=== PATIENT | female | born 1940 | race Caucasian/White ===

== ENCOUNTER → 2021-07-02 09:22 | Outpatient (CLI) | payer MEDICARE, OTHER, SELFPAY ==
[2021-07-02 12:12] LABS: COVID19 -Nasal RAPID Negative (Negative)
== END ==
PROVIDERS: PCP Nurse Practitioner Family; Visit Provider Family Medicine Sleep Medicine
DX: Z20.822 Contact with and (suspected) exposure to COVID-19 (principal)
CPT/HCPCS: 87635; C9803

== ENCOUNTER 2021-07-04 06:22 | Day surgery (SDC) | payer MEDICARE, OTHER, SELFPAY ==
[2021-06-25 09:58] VITALS: BMI 25.0
[2021-07-04] VITALS (16 sets, daily range): BP systolic 107–157; BP diastolic 45–78; PULSE 78–100; RESP 10–19; TEMP 35.6–37; O2SAT 90–97; BMI 25.0
--- NOTE | 2021-07-04 | DI.RAD.S_ITS ---
PROCEDURE: XR LUMBAR SPINE 2-3V INDICATIONS: L4-5 L5-S1 TLIF TECHNIQUE: 3 views of the lumbar spine were acquired. COMPARISON: [facility], CT, CT LUMBAR SPINE WITHOUT CONTRAST, 05/31/2021, 14:29. FINDINGS: Intraoperative images demonstrating L4-S1 fixation. Hardware appears intact with good anatomic alignment. IMPRESSION: Intraoperative L4 through S1 fixation. Dictated by: Shanice Vargas M.D. on 07/04/2021 at 17:24 Approved by: Shanice Vargas M.D. on 07/04/2021 at 17:25
[2021-07-04] MEDS: LACTATED RINGERS 1,000 ML 42 ML IV ×2 (07:00→09:52)
[2021-07-04] MEDS: ACETAMINOPHEN 325 MG TABLET 975 MG PO (07:01)
--- NOTE | 2021-07-04 07:27 | SUR.OPER ---
Prone on spine table, head in foam head support, padded chest and pelvic supports, gel pad at knees, lower legs supported by pillows; nipples, genitalia and toes free of pressure, arms secured on foam padded arm boards at <90 degrees abduction. Tape over blanket at thigh secured to table.
--- NOTE | 2021-07-04 07:46 | PM.PREOP ---
Pre-operative Note COVID-19 COVID-19 status: Negative Result date/Date tested (Pos, Neg/Pending): 07/02/21 Criteria for continued procedure: Expected advancement of disease process, Possibility delay results in more complex future surgery or treatment, Increased loss of function, Continuing or worsening of significant or severe pain, Deterioration of the patient's condition or overall health and Delay expected to result in less-positive ultimate med/surg outcome Interval Note History & Physical reviewed/Exam performed by Physician: Yes Changes to H&P: No
[2021-07-04] MEDS: CEFAZOLIN 2 GM/20 ML SYRINGE IV (08:00)
[2021-07-04] MEDS: BUPIVACAINE LIPOSOME 266 MG/20 ML VIAL INJ (08:42)
[2021-07-04] MEDS: BUPIVACAINE 0.25% (PF) 30 ML, EPINEPHrine 0.3 MG INJ (08:42)
--- NOTE | 2021-07-04 10:44 | CM.DANOTE ---
Patient is a 80 yo female who was admitted today on 07/04/21 for TLIF. Pt has [employer] for insurance and her PCP is Sonia Lipscomb. EMR was reviewed. Per Ortho MD, pt scheduled for TLIF this morning and off the floor in the OR currently. PT/OT to be ordered after pt arrives back to the floor from surgery and more medically appropriate to participate. Pt lives in [place], [place] in an apartment and has no hx of admissions here at [facility]. Plan: SW to attempt bedside assessment later today after pt returns to the floor from Ortho surgery and if pt medically appropriate for discussion. BHAVANA Poon Discharge Planning/Care Management CM Discharge Assessment Start: 07/04/21 10:41 Freq: Status: Active Protocol: Document 07/04/21 10:41 BF (Rec: 07/04/21 10:44 BF [id number]) Discharge Planning Assessment Assigned Rug Designer BHAVANA Oswald DPOA/Assigned Designee Name Santiago Rivera Contact Information [phone] Advance Directives? Yes Advance Directives on File No History Provided By Patient,Medical Record Has Patient been admitted in last 30 No days? Prior Living Arrangements Apartment/Condo Household Members none Independent with ADL's Yes Is patient alert and oriented? Yes Caregiver for Another No Community Services used prior to Physical Therapy admission: Barriers to Discharge No Comment Pending PT/OT eval and recommendations Discharge Plan Home with Home Health Additional Comment Pending PT/OT eval after surgery this morning Review Status In Process Please Provide Date Initial DC 07/04/21 Assessment Was Performed Next Review Type Continued Stay Review Pre-Anesthesia Assessment Start: 06/25/21 09:58 Freq: Status: Active Protocol: Document 06/25/21 09:58 CAB (Rec: 06/25/21 10:42 CAB [id number]) Pre-Anesthesia Assessment Patient Information Reviewed Via Phone Assessment Assessment Completed With Patient Comment Outside EKG here, labs done not here, COVID 06/29 Primary Care Provider Sonia Lipscomb Medical Clearance Received Yes Seen Specialist in Last 12 Months Yes Specialist Seen Frame Bender,Orthopedist Comment PCP clearance form scanned Primary Language Armenian Hand Screen Printer Required No Height 165.1 cm Weight 68.039 kg Body Mass Index (BMI) 25.0 Hearing Ability Use of Hearing Aid Visual Assist Glasses Dentition Type Teeth, Natural Present Barriers to Learning None Hx Anesthesia Reactions No Hx Family Anesthesia Reaction No Hx Malignant Hyperthermia No Hx Blood Transfusions No Anesthesia Review Requested No alcohol intake current alcohol intake frequency 0-2 drinks per day Smoking Status Former smoker how long ago did patient quit smoking Quit age 37 Substance Use Type other Comment CBD oil capsule prn Pain Present Pain Reported Musculoskeletal Symptoms Abnormal Gait,Back Pain, Difficulty Walking,Radiating Pain into Limb History of Falling (Recent or History of No ) Patient is completely paralyzed or No completely immobile Mental Status Oriented to own ability Is patient on oxygen? No Does patient have GARY/SOB No Hx Sleep Apnea No Currently Taking a Beta Mario No Hx Chest Pain No Hx SOB No Hx Syncope or Dizziness No Anti-Coagulant Therapy No Has a Service Desk Lead No Cardiac Testing No Hx Pacemaker/ICD No Pacemaker Rep Required? 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 Received a COVID vaccine? Yes Received all doses? Yes Marital Status / Lives With none Prior Living Arrangements Apartment/Condo Number of Floors (Floors) One Floor Support System Family,Friend(s) Does the Patient Have Assistance After Yes: Niece and daughter will Surgery stay w/pt to assist at DC Patient Discharge Plan Description Return Home Comment Pt advised 2 day length of stay per surgeon Feels Safe in Current Environment Yes Been Physically Hurt or Threatened By a No Person in Current Environment Do you have thoughts of harming yourself None or others? Are you currently considering suicide? No Do you have a plan to hurt yourself or No Plan others? Do You Have Any Spiritual Beliefs That No May Affect Your HC Choices? Do You Have Any Cultural Practices That No May Affect Your HC Choices? Comment Atheist Who Can We Speak to About Patient's Care Family, friends Identifying Code for Release of Patient Declines to issue Information Health Care Proxy/Next of Kin Diana (daughter) Health Care Proxy Emergency Contact Name Jackelyn (niece) Emergency Contact Advance Directives? Yes Advance Directives on File No Requested Patient Bring Advanced Yes Directives DOS Power of Binder Layer Yes Power of Binder Layer Name Diana (daughter) Power of Binder Layer PAC Instructions Durable medical equipment, Medications to take/avoid, Nasal antibiotic,No ETOH/ petroleum product on skin DOS, NPO,Post-op transportation,Pre -surgical wash,Sturdy shoes/ comfortable clothes,Do not bring valuables and remove jewelry
--- NOTE | 2021-07-04 12:07 | P.OP_ITS ---
Operative Date/Time/Diagnoses Date of procedure: 07/04/21 Time of procedure: 07:45 Pre-op diagnosis: 1. L4-5 spondylolisthesis 2. L4-5, L5-S1 spinal stenosis with neurogenic claudication Post-op diagnosis: same Procedure & Clinicians Procedure: 1. L4-5, L5-S1 Postero-lateral and posterior interbody fusion 2. L4-5, L5-S1 interbody cage placement. 3. L4-5, L5-S1 decompressive laminectomy with bilateral facetecomies 4. L4-5, L5-S1 Posterior segmental instrumentation 5. [place] of bone marrow from iliac crest 6. Utilization of microsurgical technique and operating microscope 7. Robotic assisted navigation surgery Same procedure as scheduled: Yes Indications: Patient has been having chronic back pain and worsening lumbar radiculopathy that is progressive in the last month. Patient failed multiple conservative management with worsening pain weakness and numbness in her lower extremity. Patient has been having difficulty performing activity of daily living. After discussing risks benefits of treatment options, patient elected proceed with surgery on urgent basis. Surgeon: Louie Bradshaw Fire Support Man: Trisha Saini Click Yes if Unassisted: No Anesthesia Type: General Operative Notes Closure Type: primary Specimen(s): none sent Prosthetic devices, grafts, tissues, transplants, or devices: Globus CREO MIS screws, Rise cages Applied: catheter Estimated Blood Loss (mL): 100 Procedure in detail: Patient was seen in the preoperative area. Risks and benefits of the surgery was discussed with the patient. Informed consent was obtained from the patient and placed in the chart. Surgical site was marked. Patient was taken to the operative room. General anesthesia was administered. Prophylactic antibiotic was given to the patient less than 30 min before the incision was made. Patient was placed into a prone position on the Johnnie table. Patient's back was then prepped and draped in the sterile fashion. Time-out was performed at this time. After patient was prepped and draped, patient's PSIS was palpated and marked suzie aterally. Small 1 cm incision was made over the PSIS for placement of the reference probes. Two trocar was placed into the PSIS 1 on each side. The reference probe was attached to the trocar of the reference apparatus. At this time the C-arm imaging was used to confirm AP and lateral of L4-L5, L5- S1 vertebrae and merged the C-arm imaging using the Frankly robotic navigation system with the CT of the lumbar spine. After successful merging was completed and confirmed, skin marker was used to samuel out the skin incision using the Frankly robotic arm. Bilateral incision was made at this time. Pre templated trajectory was used and guided using the Frankly robotic navigation system for bilateral L4, L5, S1 pedicle screw placement. This was done by using the robotic arm to guide the high-speed bur to make a cortical entry point. Next a drill was placed also using the robotic arm and guided using the navigation system drilling partially through bilateral L4, L5 and S1 pedicles. Next L4, L5, S1 pedicle screws it was pre templated and measured was placed onto the power regional flatbed truck driver and inserted into the pedicles bilaterally. After all 6 screws were placed C-arm imaging was taken of both AP and lateral to confirm the placement. Excellent placement of the screws were confirmed and a matched precisely with the pre planned screw placement using the navigation system. MARs retractor was inserted using FuelMy[employer] guidence. Globus MARS retractors was placed inside the incision and docked onto the L4 and L5 lamina. Using microsurgical technique and operating microscope, a L4, L5 laminectomy and L4-5, L5-S1 facetectomy was performed using a Kerrison rongeur. Patient was found have severe lateral recess and neural foramen stenosis which was fully decompressed after the laminectomy facetectomy. More than 75% of the facets were removed during the process of decompression rendering L4-5, L5-S1 level grossly unstable and required a fusion procedure at the same time. The disc space at L4-5, L5-S1 was identified, and a total diskectomy was performed at L4- 5, L5-S1 level. The endplates were decorticated using a rasp and shaver. The total diskectomy and decortication was performed at L4-5, L5-S1 level in order to to accomplish a L4-5, L5-S1 fusion. The local bone from the laminectomy and facetectomy was saved for local bone grafting. After the total diskectomy and decortication was completed, Trifecta bone graft material was combined with local bone that was harvested earlier. At this time, a separate skin is incision was made over the iliac crest. A Jamshidi needle was inserted into the iliac crest through a separate skin incision. 5 cc of bone marrow aspiration was obtained through the separate skin incision using a Jamshidi needle from the iliac crest. The bone marrow aspiration was combined with local bone and the Trifecta bone grafting material. The bone grafting material was placed into the L4-5, L5-S1 interbody space along with a expandable cage. The cage was expanded to its maximum height using the torque limiting screwdriver. The disc preparation as well as the cage insertion were also performed under navigation guidance. After the cage was placed, AP and lateral C-arm imaging was taken to confirm placement of the cage and excellent position was confirmed. Globus MARS retractor was inserted and docked onto the L4-5, L5-S1 posterolateral gutter on the right side. Using the power drill, posterior- lateral decortication was performed at L4-5, L5-S1 level until bleeding cortical bone was identified. The remaining bone grafting material was placed into the L4-5, L5-S1 posterior lateral gutter he order to accomplish posterolateral fusion at the L4-5, L5-S1 level. At this time the tulips were attached to the L4, L5, S1 pedicle screw shanks. After measuring the length of the rods, they were inserted into the tulips of the pedicle screws and locked in place using locking caps and torque limiting screwdriver bilaterally. Total 6 caps and 2 titanium rods was used in order to complete the posterior instrumentation construct. After all the hardware was placed, and confirmed with AP and lateral C-arm imaging, the wound was then irrigated with sterile normal saline and packed with Ray-Nacho gauze for 3 min to accomplish hemostasis. After the gauze was removed the deep fascia was closed with #1 Vicryl suture. The subcutaneous layer was closed with 2-0 Vicryl. The skin was closed with skin negrito. Patient tolerated the procedure well. There were no complications. Neuro monitoring system was used to monitor patient's neurologic status throughout entire procedure. There was no disturbance of the neural monitoring signals throughout the case. Complications: none Post-operative Condition: stable Disposition: PACU Plan for aftercare: Admit to inpatient hospital
[2021-07-04] MEDS: HYDROMORPHONE 2 MG INJ IV ×2 (12:29→12:38)
[2021-07-04] MEDS: LORazepam 2 MG/ML INJ 0.25 MG IV (12:34)
[2021-07-04] MEDS: OXYCODONE IR 5 MG TABLET PO (13:02)
--- NOTE | 2021-07-04 13:43 | SUR.PHASEI ---
1205 received post spine surgery. Sleepy for 25 min and then c/o pain. Dilaudid 0.5 mg IV given X2 and small dose of ativan. Oxycodone 5 mg IR given. Sleeping afterwards and seems very comfortable. However when awakened c/o pain 7-01/16. Report given and taken to acute care
--- NOTE | 2021-07-04 13:54 | PT-IP ANOTE ---
checked with nurse and stated that pt just came up to the floor. pt is not ready for PT eval. checked with pt and agreed to do PT tomorrow. 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 also informed PT that her L hip has more pain prior to surgery. will f/u tomorrow.
[2021-07-04] MEDS: HYDROMORPHONE 0.5 MG INJ IV (14:28)
[2021-07-04] MEDS: SODIUM CHLORIDE 0.9% 1,000 ML 100 ML IV (14:28)
[2021-07-04] MEDS: hydrOXYzine pamoate 25 MG CAPSULE PO (16:33)
[2021-07-04] MEDS: CEFAZOLIN 1 GM VIAL IV (16:33)
--- NOTE | 2021-07-04 17:27 | OT.IP.EVAL ---
Current Diagnoses Spondylolisthesis, lumbar region (07/04/21) Spinal stenosis, lumbar region with neurogenic claudication (07/04/21) Surgery Performed Operation Date: 07/04/21 07:45 Actual Procedures p L4-5, L5-S1 TLIF with posterior instrumentation-Robot(Not Applicable) - Louie Bradshaw MD Past Medical History (Last Reviewed 07/04/21 @ 06:54 by Norma Schaefer, RN) Anxiety Asthma Concussion (2009) Easy bruisability GERD (gastroesophageal reflux disease) Glaucoma Hearing loss History of hysterectomy History of tonsillectomy HTN (hypertension) Hx of laminectomy (1999) Normal pressure hydrocephalus S/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 ENGINE 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 shunt (11/2015) SCC (squamous cell carcinoma) (2020) Sciatica Surgical History (Last Reviewed 07/04/21 @ 06:54 by Norma Schaefer, YAMILE) History of hysterectomy History of tonsillectomy Hx of laminectomy (1999) S/P ELECTRIC ENGINE MECHANIC shunt (11/2015) Occupational Therapy Inpatient Evaluation/Re-Eval M1 PT/OT-IP Prior Functional Status Start: 07/04/21 17:24 Freq: NEEDED Status: Active Protocol: Document 07/04/21 17:24 [facility] (Rec: 07/04/21 17:39 [facility] [id number]) Medical Review Prior Functional Status Medical History Reviewed Yes Communication Independent Mobility and Gait Per pt last December only could walk a block and now just standing for extended time causes her pain. Activities of Daily Living and IADL's Pt needing increased time to do ADL and IADl needs. Social History Household Members none Living Arrangements Apartment/Condo Number of Floors (Floors) One Floor Number of Stairs To Enter/Railing? 1 low riser and then platform and then 2 more low rising steps with left rail going up. Home Environment High Toilet,Tub/Shower Home Equipment Front Wheel Walker,Quad Cane, Manual Wheelchair,Shower Seat with Backrest,Hand Held Shower ,Clinical Laboratory Manager,Grab Bars In Shower Additional Social History Comment Pt's niece, Jackelyn to be staying with the pt to assist for her needs . M2 OT-IP Current Condition Start: 07/04/21 17:24 Freq: Status: Active Protocol: Document 07/04/21 17:24 [facility] (Rec: 07/04/21 17:39 [facility] [id number]) Occupational Therapy Current Condition Current Condition Evaluation Date 07/04/21 Treatment Diagnosis S/p L4-5, L5-S1 TLIF Diagnosis Onset Date 07/04/21 Post Operative Precautions Lumbar Precautions Log Roll,No Twisting,Limit Bending,Lifting Restriction of 10 lbs,Gait Belt above Incisional Area M3 OT- IP Subjective and Pain Start: 07/04/21 17:24 Freq: Status: Active Protocol: Document 07/04/21 17:24 [facility] (Rec: 07/04/21 17:39 [facility] [id number]) OT- Subjective Occupational Therapy Visit Type Type Initial Evaluation Visit Start Time 16:42 Visit Stop Time 17:27 Total Visit Minutes 45 Occupational Therapy Visit Comments Patient Comments Pt wanting to get up and pt's niece in the room. Patient/Caregiver Goals TO go home. OT Pain Assessment Pain When Pain Assessed At Rest Pain Present Pain Present Pain Reported Location Back Intensity 2 Scale Used Numeric (0 - 10) M4 OT- IP ADL's Start: 07/04/21 17:24 Freq: Status: Active Protocol: Document 07/04/21 17:24 [facility] (Rec: 07/04/21 17:39 [facility] [id number]) OT GAP-Dqcv-Jjrgsln Comments OT Self-Feeding Comments Not at meal time. OT ADL-Grooming Comments OT Grooming Comments Not performed. OT ADL-Oral Care Comments Oral Care Comments Able to initiate education best to spit into a cup or hinge at her hips to best follow her back precautions. OT ADL-Dressing Comments OT Dressing Comments Pt states that she prior able to comfortable crosses her legs to do LB dressing needs. to go over use of LB dressing equipment as needed tomorrow. OT ADL-Toileting General Evaluation Toileting Ability Total Assistance Areas Needing Assistance Empty Catheter or Colostomy Comments OT Toileting Comments Garvey still in place. Pt states usually wipe from the front. OT ADL-Bathing Comments OT Bathing Comments To do shower tomorrow/ caregiver training M5 OT- IP IADL's Start: 07/04/21 17:24 Freq: Status: Active Protocol: Document 07/04/21 17:24 [facility] (Rec: 07/04/21 17:39 [facility] [id number]) OT-Instrumental Activities of Daily Living Home Safety Awareness Awareness of Need for Assistance at Home Good Awareness Ability to Problem Solve Emergency Able to Problem Solve Situations Home Safety Comments Pt's niece, Jackelyn to be staying with pt to assist for all needs. M6 OT- IP Functional Cognition Start: 07/04/21 17:24 Freq: Status: Active Protocol: Document 07/04/21 17:24 [facility] (Rec: 07/04/21 17:39 [facility] [id number]) Cognitive Factors Limiting Selfcare Function Cognitive Ability Level of Alertness Alert,Drowsy Patient Orientation Name,Place,Situation Safety Awareness Decreased Ability to Apply Precautions,Underestimates Need for Assistance Cognitive Comments Cognitive Assessment Comments Cues for log rolling. Cues to keep the FWW close to her. Pt needing reminders to incorporate her back precautions. Pt wanting to twist/turn to see her back dressing as forgetting about her back precautions. OT- Vision and Hearing OT- Hearing Assessment OT- Hearing Assessment WFL M7 OT- IP Mobility and Balance Start: 07/04/21 17:24 Freq: Status: Active Protocol: Document 07/04/21 17:24 [facility] (Rec: 07/04/21 17:39 [facility] [id number]) OT- Bed Mobility Assessment Supine to Sit Supine to Sit Assist Contact Guard Assistance Sit to Supine Sit to Supine Assist Standby Assistance Scooting Scooting to Edge of Bed Standby Assistance OT-Transfer Assessment Sit to and From Stand Sit to and from Stand Standby Assistance Transfers Transfer Ability Standby Assistance,Contact Guard Assistance Technique Transfer Destination Bed Transfer Technique Stand Step Pivot Devices Transfer Assistive Devices Gait Belt,Front Wheeled Walker Comments Mobility Comments Pt needing reminder and step by step for log rolling and hand placement from supine to sit. VC for safety to push up from the bed to stand to the FWW. CGA to stand to FWW and able to walk in the room 4 laps with CGA/SBA. Pt cues to stop as to not to overdo it on the first day. OT- Balance Assessment Sitting Balance and Reactions Static Sitting Balance Ability Normal Standing Balance and Reactions Static Standing Balance Ability Good Dynamic Standing Balance Ability Fair M8 OT- IP Objective Assessments Start: 07/04/21 17:24 Freq: Status: Active Protocol: Document 07/04/21 17:24 [facility] (Rec: 07/04/21 17:39 [facility] [id number]) OT Gross Range of Motion Upper Extremity Range of Motion Assessment Within Functional Limits M9 OT- IP Assessment and Plan Start: 07/04/21 17:24 Freq: Status: Active Protocol: Document 07/04/21 17:24 [facility] (Rec: 07/04/21 17:39 [facility] [id number]) OT Summary Assessment and Plan Potential Rehabilitation Potential Excellent Analytic Complexity at Evaluation Low Summary OT Impairments Pain,Balance,Functional Cognition,Functional Mobility, Grooming,Dressing,Toileting, Bathing,Toilet Transfers, Shower Transfers Progress Towards Goals Progressing Toward Goals Assessment Summary Pt Low complexity and main barriers are steps, pain, and needing reminders to incorporate her back precautions. Pt has a very supportive niece to stay and assist with her care at home. Pt to go home when medically stable. Goals Grooming Goal Independent Dressing Goal Independent Toileting Goal Independent Bathing Goal Standby Assistance Toilet Transfer Goal Independent Shower Transfer Goal Standby Assistance Patient/Caregiver Education Goal Demonstrate Post-Op Precautions,Caregiver Independent Assisting Patient Days to Meet Goals 2 Frequency of Treatment Frequency Of Treatment Once a Day Treatment Plan OT Treatment Plan ADL Training,Functional Cognition Training,Functional Mobility,Patient/Family Education,Discharge Planning Other Treatment Recommendations and Next shower/caregiver training Treatment Focus Discharge Recommendations OT Discharge Recommendations Home with 30/12 Assist Available Transportation Needs at Discharge Private Vehicle
[2021-07-04] MEDS: LATANOPROST 0.005% OPHTH 2.5 ML 1 DROPS EYE-BOTH (20:28)
[2021-07-04] MEDS: GABAPENTIN 400 MG CAPSULE PO (20:28)
[2021-07-04] MEDS: DOCUSATE 100 MG CAPSULE PO (20:28)
[2021-07-04] MEDS: ROPINIROLE 1 MG TABLET 3 MG PO (20:29)
[2021-07-04] MEDS: lisinopriL 20 MG TABLET 40 MG PO (20:29)
[2021-07-04] MEDS: PANTOPRAZOLE DR 40 MG TABLET 80 MG PO (20:29)
[2021-07-04] MEDS: MONTELUKAST 10 MG TABLET PO (20:29)
[2021-07-04] MEDS: MELATONIN 3 MG TABLET 6 MG PO (20:29)
[2021-07-04] MEDS: NABUMETONE 500 MG TABLET 750 MG PO (20:29)
[2021-07-04] MEDS: TRAZODONE 100 MG TABLET PO (20:30)
[2021-07-04] MEDS: SENNOSIDES 8.6 MG TABLET 17.2 MG PO (20:30)
[2021-07-04] MEDS: TRAMADOL 50 MG TABLET PO (20:30)
--- NOTE | 2021-07-04 21:17 | PC.NURSE ---
Patient is alert and oriented. Breath sounds CTA with RA sat of 95% but when falling asleep oximeter is alarming per patient and found with sat of 91% so placed on oxygen at 1L/min per NC and will continue to monitor. HRR. Denies nausea. BT present but denies passing flatus as yet. Indwelling catheter is patent; urine is clear, light yellow. Is able to turn self in bed. Gait not assessed at this time but reported by day RN that patient is up with walker and 1 assist. Dressing to back is CDI. Stated pain was 5/10 on left side of back and has been medicated with Tramadol scheduled (declines other narcotic pain medication and/or ice pack). Wearing bilateral foot SCD's at start of shift but requested they be removed when assessment done as stated she would be unable to sleep with them on. CMS is intact bilaterally. Fall risk score is moderate and bed alarm is activated.
[2021-07-05] MEDS: SODIUM CHLORIDE 0.9% 1,000 ML 100 ML IV (00:18)
[2021-07-05] MEDS: OXYCODONE IR 5 MG TABLET 10 MG PO ×2 (00:19→05:11)
[2021-07-05] MEDS: CEFAZOLIN 1 GM VIAL IV (00:19)
[2021-07-05 00:23] VITALS: BP 144/73; PULSE 83; RESP 16; TEMP 36.8; O2SAT 96
[2021-07-05 05:30] VITALS: BP 128/53; PULSE 70; RESP 18; TEMP 36.6; O2SAT 95
[2021-07-05 06:29] LABS: Hematocrit 30.6 % (36-46); Hemoglobin 10.5 g/dL (12.0-16.0)
[2021-07-05 08:00] VITALS: BP 133/63; PULSE 73; RESP 16; TEMP 35.9; O2SAT 95
--- NOTE | 2021-07-05 08:20 | PM.DS.1 ---
History of Present Illness History of Present Illness Date Patient Seen: 07/05/21 Time Patient Seen: 08:21 Chief complaint: OPB Narrative: Operative Date/Time/Diagnoses Date of procedure: 07/04/21 Time of procedure: 07:45 Pre-op diagnosis: 1. L4-5 spondylolisthesis 2. L4-5, L5-S1 spinal stenosis with neurogenic claudication Post-op diagnosis: same Procedure & Clinicians Procedure: 1. L4-5, L5-S1 Postero-lateral and posterior interbody fusion 2. L4-5, L5-S1 interbody cage placement. 3. L4-5, L5-S1 decompressive laminectomy with bilateral facetecomies 4. L4-5, L5-S1 Posterior segmental instrumentation 5. Hollister of bone marrow from iliac crest 6. Utilization of microsurgical technique and operating microscope 7. Robotic assisted navigation surgery Same procedure as scheduled: Yes Indications: Patient has been having chronic back pain and worsening lumbar radiculopathy that is progressive in the last month. Patient failed multiple conservative management with worsening pain weakness and numbness in her lower extremity.? Patient has been having difficulty performing activity of daily living.? After discussing risks benefits of treatment options, patient elected proceed with surgery on urgent basis. Surgeon: Louie Bradshaw Discharge Providers Provider Date of admission: 07/04/2021 Discharge Date: 07/05/21 Primary care physician: JUANITA Sánchez FNP-C Consults: 07/04/21 13:10 Consult to Occupational Therapy Evaluate & Treat Comment: Physician Instructions: Evaluate and treat Consult to Physical Therapy Evaluate & Treat Comment: Physician Instructions: Evaluate and Treat Discharge provider: Trisha Saini PA-C Summary Hospital Course Discharge Diagnosis: s/p lumbar fusion Hospital Course: Suzy's hospital course was unremarkable. On POD#1, she was feeling well and wanted to go home. She walked around her room with OT without difficulty. She denied N/V. Pain was well-controlled with gabapentin and oxycodone. Status at Discharge Cognitive/behavioral status at discharge: at baseline, oriented Functional status at discharge: uses cane/walker Exam Vital Signs (past 8 hours): - 07/05/21 00:23 07/05/21 05:30 07/05/21 08:00 Temperature 98.3 F 97.9 F 96.7 F L Pulse Rate 83 70 73 Respiratory Rate 16 18 16 Blood Pressure 144/73 H 128/53 L 133/63 Pulse Oximetry 96 95 95 Oxygen Delivery Method Room Air Oxygen Flow Rate 0 Narrative Exam Narrative: 5/5 strength in quadriceps, hamstrings, dorsiflexors, plantarflexors, and extensor hallucis longus bilaterally. Calves soft, nontender, and compressible without palpable cords or masses. Low back dressing CDI. Objective Labs Result Diagrams: 07/05/21 06:17 Labs: Laboratory Results - last 24 hr 07/05/21 06:17 Hgb 10.5 L Hct 30.6 L PFSH Medical History Anxiety Asthma Concussion (2009) Easy bruisability GERD (gastroesophageal reflux disease) Glaucoma Hearing loss HTN (hypertension) Normal pressure hydrocephalus SCC (squamous cell carcinoma) (2020) Sciatica Surgical History (Updated 07/05/21 @ 07:50 by Trisha Saini PA-C) History of hysterectomy History of tonsillectomy Hx of laminectomy (1999) S/P SHINGLE SAWYER shunt (11/2015) Social History household members: none Smoking Status: Former smoker alcohol intake: current Discharge Assessment & Plan Assessment and Plan Assessment: 1) S/p lumbar fusion 2) Anemia due to surgical blood loss, asymptomatic, no intervention required. Plan of Treatment: Pt to discharge home once voiding independently. Discharge Plan Discharge Plan Patient Disposition: Home Discharge orders & Medications Discharge Orders: Discharge (Order); Ordered 07/05/21 Ordered By: Trisha Saini Prescriptions: New acetaminophen 325 mg Tablet 1,000 mg PO Q6HR MDD 4000 mg Qty: 240 1RF docusate sodium 100 mg Capsule 100 mg PO BID PRN (Reason: constipation) Qty: 60 1RF oxycodone 5 mg Tablet 5 mg PO Q4-6H PRN (Reason: Pain, Severe (7-10)) Qty: 30 0RF Continued latanoprost 0.005 % Drops 1 drp EYE-BOTH BEDTIME 0RF nabumetone 750 mg Tablet 750 mg PO BID 0RF Label Comments: for arthritis ropinirole 3 mg Tablet 3 mg PO BEDTIME 0RF Rx Instructions: administer 1-3 hours before bedtime gabapentin 400 mg Capsule 400 mg PO BID 0RF amlodipine 5 mg Tablet 5 mg PO DAILY 0RF aspirin 81 mg Tablet,Delayed Release (Dr/Ec) 81 mg PO BEDTIME 0RF citalopram [Celexa] 20 mg Tablet 20 mg PO DAILY 0RF tolterodine [Detrol] 2 mg Tablet 4 mg PO DAILY 0RF trazodone 100 mg Tablet 100 mg PO BEDTIME 0RF pantoprazole 40 mg Tablet,Delayed Release (Dr/Ec) 80 mg PO BEDTIME 0RF montelukast 10 mg Tablet 10 mg PO BEDTIME 0RF estradiol 0.5 mg Tablet 0.5 mg PO DAILY 0RF Label Comments: Pt states she takes everyday Rx Instructions: off 5 days; repeat cycle ramipril [Altace] 10 mg Capsule 10 mg PO BID 0RF melatonin 5 mg Capsule 5 mg PO BEDTIME 0RF Discontinued tramadol 50 mg Tablet 50 mg PO BID 0RF Follow up/Referrals: Sonia Lipscomb ARNP, INFORMATION TECHNOLOGY SECURITY MANAGER-C [Primary Care Provider] - Louie Bradshaw MD [Physician] - (Follow up with Dr Bradshaw on 07/19/2021 @ 9:30 am, [facility].) Diet/Activity/Treatments Diet: Diet as Tolerated Activity: Activity as tolerated. No bending more than 90 degrees at the waist or deep twisting. No lifting more than 10 pounds. Cold/Heat Therapy: Ice and heat to low back as needed for pain. Skin/Wound/Dressing Care Report to your healthcare provider any signs of infection, such as:: chills, fever, night sweats, increased pain, unusual drainage and unusual redness Dressing: Keep dressing clean and dry until follow up appointment. May remove dressing and replace with clean gauze if it becomes wet inside. No soaking incisions. Do not apply any creams, lotions, or ointments to incisions. Visit Report/Discharge Packet Instructions: DI for Transforaminal Lumbar Interbody Fusion Stand Alone Forms: Surgery Discharge Discharge Data Primary Care Provider: Sonia Lipscomb Attending Provider: Louie Bradshaw Quality VTE Deep Vein Thrombosis/Pulmonary Embolism Present on Admission: No
[2021-07-05 08:45] VITALS: BP 133/63
[2021-07-05] MEDS: lisinopriL 20 MG TABLET 40 MG PO (08:45)
[2021-07-05] MEDS: estradioL 1 MG TABLET 0.5 MG PO (08:46)
[2021-07-05] MEDS: CITALOPRAM 10 MG TABLET 20 MG PO (08:46)
[2021-07-05] MEDS: OXYBUTYNIN 5 MG ER TAB 10 MG PO (08:46)
[2021-07-05] MEDS: AMLODIPINE 5 MG TABLET PO (08:46)
[2021-07-05] MEDS: NABUMETONE 500 MG TABLET 750 MG PO (08:47)
[2021-07-05] MEDS: DOCUSATE 100 MG CAPSULE PO (08:47)
[2021-07-05] MEDS: TRAMADOL 50 MG TABLET PO (08:47)
[2021-07-05] MEDS: GABAPENTIN 400 MG CAPSULE PO (08:47)
[2021-07-05] MEDS: ACETAMINOPHEN 325 MG TABLET 650 MG PO (08:48)
--- NOTE | 2021-07-05 09:25 | PT.IIE ---
Current Diagnoses Spondylolisthesis, lumbar region (07/04/21) Spinal stenosis, lumbar region with neurogenic claudication (07/04/21) Arthrodesis status (07/04/21) Surgery Performed Operation Date: 07/04/21 07:45 Actual Procedures p L4-5, L5-S1 TLIF with posterior instrumentation-Robot(Not Applicable) - Louie Bradshaw MD Medical History (Last Reviewed 07/04/21 @ 06:54 by Norma Schaefer RN) Anxiety Asthma Concussion (2009) Easy bruisability GERD (gastroesophageal reflux disease) Glaucoma Hearing loss HTN (hypertension) Normal pressure hydrocephalus SCC (squamous cell carcinoma) (2020) Sciatica Physical Therapy Inpatient Evaluation/Re-Eval M1 PT/OT-IP Prior Functional Status Start: 07/04/21 17:24 Freq: NEEDED Status: Discharge Protocol: Document 07/04/21 17:24 [facility] (Rec: 07/04/21 17:39 [facility] [id number]) Medical Review Prior Functional Status Medical History Reviewed Yes Communication Independent Mobility and Gait Per pt last December only could walk a block and now standing for extended time causes her pain. Activities of Daily Living and IADL's Pt needign increased time to do ADL and IADl needs. Social History Household Members none Living Arrangements Apartment/Condo Number of Floors (Floors) One Floor Number of Stairs To Enter/Railing? 1 low riser and then platform and then 2 more low rising steps with left rail going up. Home Environment High Toilet,Tub/Shower Home Equipment Front Wheel Walker,Quad Cane, Manual Wheelchair,Shower Seat with Backrest,Hand Held Shower ,Ski Technician,Grab Bars In Shower Additional Social History Comment Pt's niece to be staying with the pt to assist for her needs . M1 PT/OT-IP Prior Functional Status Start: 07/05/21 13:58 Freq: NEEDED Status: Active Protocol: Document 07/05/21 09:25 AB (Rec: 07/05/21 14:09 AB [id number]) Medical Review Prior Functional Status Medical History Reviewed Yes Communication able to make needs known Mobility and Gait pt stated that she is modified independent with all mobilities and ambulation without AD but needs seated rests in between standing/ walking Social History Household Members none Living Arrangements Apartment/Condo Number of Floors (Floors) One Floor Number of Stairs To Enter/Railing? 1 platform steps + 2 steps L rail to enter the house Home Environment High Toilet,Tub/Shower Home Equipment Front Wheel Walker,Quad Cane, Manual Wheelchair,Shower Seat with Backrest,Hand Held Shower ,Ski Technician,Grab Bars In Shower Additional Social History Comment pt's niece will stay with pt to assist M2 PT-IP Current Condition Start: 07/05/21 13:58 Freq: NEEDED Status: Active Protocol: Document 07/05/21 09:25 AB (Rec: 07/05/21 14:09 AB [id number]) Physical Therapy Current Condition Current Condition Evaluation Date 07/05/21 Treatment Diagnosis s/p L4-5, L5S1 TLIF; difficulty in walking Onset Date 07/04/21 M3 PT-IP Subjective Start: 07/05/21 13:58 Freq: NEEDED Status: Active Protocol: Document 07/05/21 09:25 AB (Rec: 07/05/21 14:09 AB [email or web address]) Subjective Physical Therapy Visit Type Type Initial Evaluation Visit Start Time 09:25 Visit Stop Time 10:10 Total Visit Minutes 45 Number of CLIENT TECHNICAL PROFESSIONAL Visits 0 Physical Therapy Visit Comments Patient Comments agreeable to do PT Therapy Pain Assessment Pain When Pain Assessed At Rest Pain Present Pain Present Pain Reported Location Back Intensity 4 Scale Used increases to 8/10 with mobility Pain Management Techniques Apply Cold,Distraction, Modification of Treatment,Re- positioning,Timing of Activity with Medications M4 PT-IP Mobility and Gait Start: 07/05/21 13:58 Freq: NEEDED Status: Active Protocol: Document 07/05/21 09:25 AB (Rec: 07/05/21 14:09 AB [email or web address]) PT-Bed Mobility Assessment Rolling Type of Rolling Log Rolling Level of Assist Standby Assistance Supine to Sit Supine to Sit Standby Assistance PT-Transfer Assessment Sit to and From Stand Sit to and from Stand Standby Assistance Equipment Transfer Assistive Device Gait Belt Orthotic/Prosthetic Devices or Brace: No Transfers Transfer Destination Chair Transfer Technique Stand Step Pivot Transfer Ability Level of Assist Standby Assistance,1 Person Assistance,Use of Upper Extremities Comments Mobility Comments pt able to recall her precautions. completed log roll supine to sit SBA. sat on chair SBA. niece in room. completed sit to stand SBA and ambulated in room ~ 40 ft using FWW SBA. pt sat on chair and rested. agreed to walk in the hallway and do stair climbing. completed sit to stand from chair SBA and ambulated in the hallway using FWW SBA. presents with slight antalgic gait and increase RLE external rotation . pt completed up/down platform step using FWW CGA. completed up/down 3 steps using L rail ascending with first set doing step to pattern CGA and then 2nd set with step through pattern CGA. educated niece on positioning and how to assist pt. pt ambulated back to her room using FWW SBA. agreed to sit on chair and positioning. call light and table placed within reach. 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 Pt and niece without any further concerns. Gait Assessment Gait Gait Assistance Required: Standby Assistance Distance (Feet) 125 Able to Maintain Weight Bearing Status Yes During Gait Assistive Devices Assistive Device Gait Belt,Front Wheeled Walker Orthotic/Prosthetic Devices or Brace: No Gait Deviations General Gait Pattern Antalgic Factors Limiting Gait Function Factors Limiting Gait Function Decreased Activity Tolerance, Decreased Strength,Limited Range of Motion,Pain,Poor Balance Stair Climbing Assessment Evaluation Level of Assist On Stairs Contact Guard Assistance Devices Stair Climbing Assistive Devices Front Wheel Walker,Left Railing Technique/Endurance Stair Climbing Direction Ascend and Descend Stair Climbing Technique Step Over Step,Step to Step Number of Steps Climbed 3 Query Text: Stair Climbing Set # Repetitions (reps) 2 Comments Stair Climbing Comments pls refer to mobility section for details PT-Balance Assessment Sitting Balance and Reactions Static Sitting Balance Ability Normal Dynamic Sitting Balance Ability Good Standing Balance and Reactions Static Standing Balance Ability Good Dynamic Standing Balance Ability Fair Device Used FWW M5 PT-IP Objective Assessments Start: 07/05/21 13:58 Freq: NEEDED Status: Active Protocol: Document 07/05/21 09:25 AB (Rec: 07/05/21 14:09 AB [id number]) Orientation Orientation/Cognition Level of Alertness Alert Orientation Name,Place,Situation Language Function Ability Hard of Hearing Safety Awareness Understands Safety Issues Memory Description No Deficits Noted Gross Range of Motion Lower Extremity ROM Assessment Within Functional Limits Strength Lower Extremity Strength Hip 4-/5 Knee 4-/5 Coordination Assessment Gross Coordination Gross Coordination WNL Sensation Assessment Sensation Gross Sensation WNL Muscle Tone Muscle Tone WNL Yes M6 PT-IP Treatment Start: 07/05/21 13:58 Freq: NEEDED Status: Active Protocol: Document 07/05/21 09:25 AB (Rec: 07/05/21 14:09 [email or web address]) Physical Therapy Treatment Education Education Provided Precautions,Weight Bearing Status,Post-Op Packet,Safety M7 PT-IP Assessment and Plan Start: 07/05/21 13:58 Freq: NEEDED Status: Active Protocol: Document 07/05/21 09:25 AB (Rec: 07/05/21 14:09 [email or web address]) PT Summary Assessment and Plan Potential Rehabilitation Potential Good Status of Condition at Evaluation Stable Summary Impairments Pain,ROM,Strength,Balance, Coordination,Sensation,Tone, Cognition,Bed Mobility, Transfers,Gait,Activity Tolerance Assessment Summary pt requiring SBA to CGA with mobility using FWW. pt plans to go home and her niece will assist her at home. Pt may go home when medically stable. Goals Bed Mobility Goal Independent Transfer Goal Independent,Front Wheeled Walker Gait Goal Independent,Front Wheel Walker Gait Distance 200 Other Goals up/down 1 platform step mod i using FWW + 2 steps L rail mod I Days to Meet Goals 3 Frequency of Treatment Frequency Of Treatment Twice a Day Treatment Plan Physical Therapy Treatment Plan Bed Mobility Training,Transfer Training,Gait Training, Therapeutic Exercise,Balance Retraining,Post Op Education, Discharge Planning,Hot or Cold Pack,Neuromuscular Re-ed, Coordination Retraining,Manual Therapy Precautions Lumbar Precautions Log Roll,No Twisting,Limit Bending,Lifting Restriction of 10 lbs,Gait Belt above Incisional Area Recommendations To Nursing Amount of Assist Needed Standby Assistance Discharge Recommendations PT Discharge Recommendations Home with Assistance Transportation Needs at Discharge Private Vehicle
--- NOTE | 2021-07-05 11:00 | OT.IP.TRT ---
Current Diagnoses Spondylolisthesis, lumbar region (07/04/21) Spinal stenosis, lumbar region with neurogenic claudication (07/04/21) Arthrodesis status (07/04/21) Surgery Performed Operation Date: 07/04/21 07:45 Actual Procedures p L4-5, L5-S1 TLIF with posterior instrumentation-Robot(Not Applicable) - Louie Bradshaw MD Occupational Therapy Treatment Note M2 OT-IP Current Condition Start: 07/04/21 17:24 Freq: Status: Discharge Protocol: Document 07/04/21 17:24 [facility] (Rec: 07/04/21 17:39 [facility] [id number]) Occupational Therapy Current Condition Current Condition Evaluation Date 07/04/21 Treatment Diagnosis S/p L4-5, L5-S1 TLIF Diagnosis Onset Date 07/04/21 Post Operative Precautions Lumbar Precautions Log Roll,No Twisting,Limit Bending,Lifting Restriction of 10 lbs,Gait Belt above Incisional Area M3 OT- IP Subjective and Pain Start: 07/04/21 17:24 Freq: Status: Discharge Protocol: Document 07/05/21 11:01 [facility] (Rec: 07/05/21 11:20 [facility] [id number]) OT- Subjective Occupational Therapy Visit Type Type Treatment Note Visit Start Time 10:13 Visit Stop Time 11:00 Total Visit Minutes 47 Occupational Therapy Visit Comments Patient Comments Pt wanting to shower and pt's niece present for caregiver training. Patient/Caregiver Goals to go home OT Pain Assessment Pain When Pain Assessed At Rest Pain Present Pain Present Denied Pain M4 OT- IP ADL's Start: 07/04/21 17:24 Freq: Status: Discharge Protocol: Document 07/05/21 11:01 [facility] (Rec: 07/05/21 11:20 [facility] [id number]) OT [id number] General Evaluation Self-Feeding Ability Independent OT ADL-Grooming General Evaluation Grooming Ability Independent Areas Needing Assistance Retrieving/Set-up of Grooming Items OT ADL-Dressing General Eval Upper Body Dressing Ability Independent Lower Body Dressing Ability Standby Assistance Comments OT Dressing Comments Pt able to do all her dressing needs with increased time and SBA for safety while standing to pull up her pants over her hips. Pt struggling a little to tie her shoes and suggested to pt to just have her niece assist with her needs. OT ADL-Toileting General Evaluation Toileting Ability Independent OT ADL-Bathing General Evaluation Bathing Ability Minimal Assistance Comments OT Bathing Comments assist with her back Educated of covering the dressing for showers. Pt currently has a shower chair but only sits side ways in the tub. Suggested best to get a tub bench to prevent for tipping over on the current shower chair. M5 OT- IP IADL's Start: 07/04/21 17:24 Freq: Status: Discharge Protocol: Document 07/04/21 17:24 [facility] (Rec: 07/04/21 17:39 [facility] [id number]) OT-Instrumental Activities of Daily Living Home Safety Awareness Awareness of Need for Assistance at Home Good Awareness Ability to Problem Solve Emergency Able to Problem Solve Situations Home Safety Comments Pt's niece, Jackleyn to be staying with pt to assist for all needs. M6 OT- IP Functional Cognition Start: 07/04/21 17:24 Freq: Status: Discharge Protocol: Document 07/05/21 11:01 [facility] (Rec: 07/05/21 11:20 [facility] [id number]) Cognitive Factors Limiting Selfcare Function Cognitive Ability Level of Alertness Alert Patient Orientation Name,Age,Birthday,Month,Date, Year,Day of Week,Place, Situation Attention Span Ability Capable of Focused Attention, Capable of Sustained Attention Ability to Follow Commands Able to Follow Multi-Step Commands Safety Awareness Decreased Ability to Apply Precautions,Underestimates Need for Assistance Cognitive Comments Cognitive Assessment Comments Pt a little impulsive and and needing vc to incorporate back precautions for her needs. M7 OT- IP Mobility and Balance Start: 07/04/21 17:24 Freq: Status: Discharge Protocol: Document 07/05/21 11:01 [facility] (Rec: 07/05/21 11:20 [facility] [id number]) OT-Transfer Assessment Sit to and From Stand Sit to and from Stand Standby Assistance Transfers Transfer Ability Standby Assistance,Contact Guard Assistance Technique Transfer Destination Bed,Chair Transfer Technique Stand Pivot Devices Transfer Assistive Devices Gait Belt,Front Wheeled Walker Comments Mobility Comments Pt's niece able to adrian/doff the gait belt with good safety and demonstration and able to assist for all mobility needs . Able to go over techniques for car transfer. Tried at kianna ea few steps without the FWW and at this time pt much more stable with FWW. OT- Balance Assessment Sitting Balance and Reactions Static Sitting Balance Ability Normal Dynamic Sitting Balance Ability Normal Standing Balance and Reactions Static Standing Balance Ability Good Dynamic Standing Balance Ability Fair M8 OT- IP Objective Assessments Start: 07/04/21 17:24 Freq: Status: Discharge Protocol: Document 07/04/21 17:24 [facility] (Rec: 07/04/21 17:39 [facility] [id number]) OT Gross Range of Motion Upper Extremity Range of Motion Assessment Within Functional Limits M9 OT- IP Assessment and Plan Start: 07/04/21 17:24 Freq: Status: Discharge Protocol: Document 07/05/21 11:01 [facility] (Rec: 07/05/21 11:20 [facility] [id number]) OT Summary Assessment and Plan Potential Rehabilitation Potential Excellent Analytic Complexity at Evaluation Low Summary OT Impairments Pain,Balance,Functional Cognition,Functional Mobility, Grooming,Dressing,Toileting, Bathing,Toilet Transfers, Shower Transfers Progress Towards Goals Progressing Toward Goals Assessment Summary Pt's niece able to participate in caregiver training and able to show good safety and demonstration to be able assist pt for all ADl and mobility needs. Pt looking to get a tub bench. Pt to go home with her niece to assist. Discharge Recommendations OT Discharge Recommendations Home with 30/12 Assist Available Home Equipment Needs tub bench,4ww Transportation Needs at Discharge Private Vehicle
--- NOTE | 2021-07-05 11:10 | PC.NURSE ---
Pt is showered and dressed for discharge home with Niece. IV has been removed. Went over d/c instructions with Pt and Niece-discussed d/c meds, time of last dose, reminded Pt not to drive while on narcotics, reminded Pt to drink fluids to prevent constipation or dehydration. Discussed using an ice pack to relieve pain as needed, follow up, s/s of stroke and infection, and follow up appt. Reinforced no bending, lifting or twisting. Pt denies further questions and was taken out via w/c by [facility] with Niece and all belongings.
== END 2021-07-05 11:17 | disposition home or self-care (01) ==
LOC: OR 06:26 → AC 06:29
PROVIDERS: PCP Nurse Practitioner Family; Referring Provider Orthopaedic Surgery Orthopaedic Surgery of the Spine; Visit Provider Orthopaedic Surgery Orthopaedic Surgery of the Spine
PROC: (CPT 22633; principal; 2021-07-04 07:45)
DX: M48.062 Spinal stenosis, lumbar region with neurogenic claudication (principal); M43.16 Spondylolisthesis, lumbar region; I10 Essential (primary) hypertension; K21.9 Gastro-esophageal reflux disease without esophagitis; J45.20 Mild intermittent asthma, uncomplicated
CPT/HCPCS: 22633; 22634; 20939; 22853 ×2; 63052; 63053; 22842; 36415; 72100; 76000; 82962; 85014; 85018; 97116; 97161; 97165; 97530; 97535; C1713; C9290; J0171; J0330; J0690; J1100; J1170; J2060; J2405; J2704; J3010

== ENCOUNTER 2024-05-05 09:35 | Emergency (ER) | payer MEDICARE, OTHER, SELFPAY ==
[2021-07-04 14:02] VITALS: BMI 25.0
[2024-05-05 09:40] VITALS: BP 195/82; PULSE 83; RESP 15; TEMP 36.1; O2SAT 98; BMI 28.1
--- NOTE | 2024-05-05 11:15 | PC.NURSE ---
patient called in the ER lobby with no answer.
--- NOTE | 2024-05-05 11:18 | ED_ITS ---
HPI - Skin/Abscess/Foreign Bdy General Chief complaint: Skin/Abscess/Foreign Body Stated complaint: L ankle lump/swelling Time Seen by Provider: 05/05/24 11:17 Source: patient Mode of arrival: Ambulatory Limitations: no limitations Related Data Home Medications Medication Instructions Recorded Confirmed amlodipine 5 mg tablet 5 mg PO DAILY 06/25/21 07/04/21 aspirin 81 mg tablet,delayed 81 mg PO BEDTIME 06/25/21 07/04/21 release citalopram 20 mg tablet (Celexa) 20 mg PO DAILY 06/25/21 07/04/21 estradiol 0.5 mg tablet 0.5 mg PO DAILY 06/25/21 07/04/21 gabapentin 400 mg capsule 400 mg PO BID 06/25/21 07/04/21 latanoprost 0.005 % eye drops 1 drp EYE-BOTH BEDTIME 06/25/21 07/04/21 melatonin 5 mg capsule 5 mg PO BEDTIME 06/25/21 07/04/21 montelukast 10 mg tablet 10 mg PO BEDTIME 06/25/21 07/04/21 nabumetone 750 mg tablet 750 mg PO BID 06/25/21 07/04/21 pantoprazole 40 mg tablet,delayed 80 mg PO BEDTIME 06/25/21 07/04/21 release ramipril 10 mg capsule (Altace) 10 mg PO BID 06/25/21 07/04/21 ropinirole 3 mg tablet 3 mg PO BEDTIME 06/25/21 07/04/21 tolterodine 2 mg tablet (Detrol) 4 mg PO DAILY 06/25/21 07/04/21 trazodone 100 mg tablet 100 mg PO BEDTIME 06/25/21 07/04/21 Previous Rx's Medication Instructions Recorded acetaminophen 325 mg tablet 1,000 mg (3.0769 x 325 mg) PO Q6HR 07/05/21 #240 tabs docusate sodium 100 mg capsule 100 mg PO BID PRN constipation #60 07/05/21 caps oxycodone 5 mg tablet 5 mg PO Q4-6H PRN Pain, Severe 07/05/21 (7-10) #30 tabs Allergies Allergy/AdvReac Type Severity Reaction Status Date / Time metoprolol AdvReac Severe Hypotension Verified 05/05/24 09:40 hydrocodone AdvReac Intermediate Nausea, Verified 05/05/24 09:40 vomiting Patient History Medical History Concussion (2009) Anxiety Easy bruisability SCC (squamous cell carcinoma) (2020) GERD (gastroesophageal reflux disease) HTN (hypertension) Asthma Hearing loss Glaucoma Sciatica Normal pressure hydrocephalus Surgical History (Updated 07/05/21 @ 07:50 by Trisha Saini PA-C) Hx of laminectomy (1999) History of hysterectomy History of tonsillectomy S/P SHREDDER TENDER PEAT shunt (11/2015) Social History household members: none Smoking Status: Former smoker alcohol intake: current Smoking Status: Former smoker alcohol intake frequency: 0-2 drinks per day Substance Use Type: does not use and other Exam Initial Vital Signs Initial Vital Signs: Vital Signs Temperature 97.0 F L 05/05/24 09:40 Pulse Rate 83 05/05/24 09:40 Respiratory Rate 15 05/05/24 09:40 Blood Pressure 195/82 H 05/05/24 09:40 Pulse Oximetry 98 05/05/24 09:40 Oxygen Delivery Method Room Air 05/05/24 09:40 Course Vital Signs Vital signs: Vital Signs - 8 hr 05/05/24 09:40 Temperature 97.0 F L Pulse Rate 83 Respiratory Rate 15 Blood Pressure 195/82 H Pulse Oximetry 98 Oxygen Delivery Method Room Air Discharge Plan Departure Prescriptions: No Action latanoprost 0.005 % Drops 1 drp EYE-BOTH BEDTIME nabumetone 750 mg Tablet 750 mg PO BID Patient Comments: for arthritis ropinirole 3 mg Tablet 3 mg PO BEDTIME Rx Instructions: administer 1-3 hours before bedtime gabapentin 400 mg Capsule 400 mg PO BID amlodipine 5 mg Tablet 5 mg PO DAILY aspirin 81 mg Tablet,Delayed Release (Dr/Ec) 81 mg PO BEDTIME citalopram [Celexa] 20 mg Tablet 20 mg PO DAILY tolterodine [Detrol] 2 mg Tablet 4 mg PO DAILY trazodone 100 mg Tablet 100 mg PO BEDTIME pantoprazole 40 mg Tablet,Delayed Release (Dr/Ec) 80 mg PO BEDTIME montelukast 10 mg Tablet 10 mg PO BEDTIME estradiol 0.5 mg Tablet 0.5 mg PO DAILY Patient Comments: Pt states she takes everyday Rx Instructions: off 5 days; repeat cycle ramipril [Altace] 10 mg Capsule 10 mg PO BID melatonin 5 mg Capsule 5 mg PO BEDTIME acetaminophen 325 mg Tablet 1,000 mg PO Q6HR MDD 4000 mg Qty: 240 1RF docusate sodium 100 mg Capsule 100 mg PO BID PRN (Reason: constipation) Qty: 60 1RF oxycodone 5 mg Tablet 5 mg PO Q4-6H PRN (Reason: Pain, Severe (7-10)) Qty: 30 0RF Referrals: Sonia Lipscomb, JUANITA, HYDROCRANE OPERATOR-C [Primary Care Provider] -
--- NOTE | 2024-05-05 11:30 | PC.NURSE ---
patient called in the ER lobby with no answer.
--- NOTE | 2024-05-05 19:16 | ED_ITS ---
HPI - Skin/Abscess/Foreign Bdy General Chief complaint: Skin/Abscess/Foreign Body Stated complaint: L ankle lump/swelling Time Seen by Provider: 05/05/24 11:17 Source: patient Mode of arrival: Ambulatory Limitations: no limitations History of Present Illness HPI narrative: Patient left without being seen by provider Related Data Home Medications Medication Instructions Recorded Confirmed amlodipine 5 mg tablet 5 mg PO DAILY 06/25/21 07/04/21 aspirin 81 mg tablet,delayed 81 mg PO BEDTIME 06/25/21 07/04/21 release citalopram 20 mg tablet (Celexa) 20 mg PO DAILY 06/25/21 07/04/21 estradiol 0.5 mg tablet 0.5 mg PO DAILY 06/25/21 07/04/21 gabapentin 400 mg capsule 400 mg PO BID 06/25/21 07/04/21 latanoprost 0.005 % eye drops 1 drp EYE-BOTH BEDTIME 06/25/21 07/04/21 melatonin 5 mg capsule 5 mg PO BEDTIME 06/25/21 07/04/21 montelukast 10 mg tablet 10 mg PO BEDTIME 06/25/21 07/04/21 nabumetone 750 mg tablet 750 mg PO BID 06/25/21 07/04/21 pantoprazole 40 mg tablet,delayed 80 mg PO BEDTIME 06/25/21 07/04/21 release ramipril 10 mg capsule (Altace) 10 mg PO BID 06/25/21 07/04/21 ropinirole 3 mg tablet 3 mg PO BEDTIME 06/25/21 07/04/21 tolterodine 2 mg tablet (Detrol) 4 mg PO DAILY 06/25/21 07/04/21 trazodone 100 mg tablet 100 mg PO BEDTIME 06/25/21 07/04/21 Previous Rx's Medication Instructions Recorded acetaminophen 325 mg tablet 1,000 mg (3.0769 x 325 mg) PO Q6HR 07/05/21 #240 tabs docusate sodium 100 mg capsule 100 mg PO BID PRN constipation #60 07/05/21 caps oxycodone 5 mg tablet 5 mg PO Q4-6H PRN Pain, Severe 07/05/21 (7-10) #30 tabs Allergies Allergy/AdvReac Type Severity Reaction Status Date / Time metoprolol AdvReac Severe Hypotension Verified 05/05/24 09:40 hydrocodone AdvReac Intermediate Nausea, Verified 05/05/24 09:40 vomiting Patient History Medical History (Updated 05/05/24 @ 11:53 by Muriel Naik RN) Concussion (2009) Anxiety Easy bruisability SCC (squamous cell carcinoma) (2020) GERD (gastroesophageal reflux disease) HTN (hypertension) Asthma Hearing loss Glaucoma Sciatica Normal pressure hydrocephalus Surgical History (Updated 07/05/21 @ 07:50 by Trisha Saini PA-C) Hx of laminectomy (1999) History of hysterectomy History of tonsillectomy 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) Social History household members: none Smoking Status: Former smoker alcohol intake: current Smoking Status: Former smoker alcohol intake frequency: 0-2 drinks per day Substance Use Type: marijuana and other Exam Initial Vital Signs Initial Vital Signs: Vital Signs Temperature 97.0 F L 05/05/24 09:40 Pulse Rate 83 05/05/24 09:40 Respiratory Rate 15 05/05/24 09:40 Blood Pressure 195/82 H 05/05/24 09:40 Pulse Oximetry 98 05/05/24 09:40 Oxygen Delivery Method Room Air 05/05/24 09:40 Discharge Plan Departure Patient Disposition: Left Without Being Seen Clinical Impression: Patient left after triage, Patient left before evaluation by physician Prescriptions: No Action latanoprost 0.005 % Drops 1 drp EYE-BOTH BEDTIME nabumetone 750 mg Tablet 750 mg PO BID Patient Comments: for arthritis ropinirole 3 mg Tablet 3 mg PO BEDTIME Rx Instructions: administer 1-3 hours before bedtime gabapentin 400 mg Capsule 400 mg PO BID amlodipine 5 mg Tablet 5 mg PO DAILY aspirin 81 mg Tablet,Delayed Release (Dr/Ec) 81 mg PO BEDTIME citalopram [Celexa] 20 mg Tablet 20 mg PO DAILY tolterodine [Detrol] 2 mg Tablet 4 mg PO DAILY trazodone 100 mg Tablet 100 mg PO BEDTIME pantoprazole 40 mg Tablet,Delayed Release (Dr/Ec) 80 mg PO BEDTIME montelukast 10 mg Tablet 10 mg PO BEDTIME estradiol 0.5 mg Tablet 0.5 mg PO DAILY Patient Comments: Pt states she takes everyday Rx Instructions: off 5 days; repeat cycle ramipril [Altace] 10 mg Capsule 10 mg PO BID melatonin 5 mg Capsule 5 mg PO BEDTIME acetaminophen 325 mg Tablet 1,000 mg PO Q6HR MDD 4000 mg Qty: 240 1RF docusate sodium 100 mg Capsule 100 mg PO BID PRN (Reason: constipation) Qty: 60 1RF oxycodone 5 mg Tablet 5 mg PO Q4-6H PRN (Reason: Pain, Severe (7-10)) Qty: 30 0RF
== END 2024-05-05 11:53 | disposition left against medical advice (07) ==
PROVIDERS: Emergency Provider Emergency Medicine; PCP Nurse Practitioner Family
CPT/HCPCS: 99281